=== PATIENT | male | born 1955 | race Caucasian/White ===

== ENCOUNTER 2018-04-04 06:58 | Day surgery (SDC) | payer OTHER ==
[2018-04-03 15:13] VITALS: BMI 30.7
[2018-04-04] MEDS ORDERED: LIDOCAINE VISCOUS 2% ORAL/TOP 20 ML UNIT-DOSE CUP ONE (07:47)
[2018-04-04 09:13] VITALS: TEMP 97.5
[2018-04-04 09:28] VITALS: PULSE 71
[2018-04-04 10:49] VITALS: BP 108/81
--- NOTE | 2018-04-04 11:45 | EKG ---
Test Reason : Blood Pressure : / mmHG Vent. Rate : 071 BPM Atrial Rate : 071 BPM P-R Int : 206 ms QRS Dur : 092 ms QT Int : 420 ms P-R-T Axes : 055 035 027 degrees QTc Int : 456 ms NORMAL SINUS RHYTHM POSSIBLE INFERIOR INFARCT , AGE UNDETERMINED ABNORMAL ECG NO PREVIOUS ECGS AVAILABLE Confirmed by Frank Dangelo MD ([id number]) on 04/04/2018 11:45:42 AM Referred By: Addie RAMIRES Confirmed By:Frank Dangelo MD
== END 2018-04-04 10:10 | disposition home or self-care (01) ==
LOC: JASU-ENDO 06:58
PROVIDERS: ATTEND Internal Medicine Cardiovascular Disease
PROC: 5A2204Z Restoration of Cardiac Rhythm, Single (ICD-10-PCS; 2018-04-04)
PROC: B246ZZ4 Ultrasonography of Right and Left Heart, Transesophageal (ICD-10-PCS; principal; 2018-04-04 08:15)
DX: I48.91 Unspecified atrial fibrillation (principal)
CPT/HCPCS: 93005; 93010; 93312; 93325

== ENCOUNTER 2018-04-24 10:17 | Day surgery (SDC) | payer OTHER ==
[2018-04-21 14:22] VITALS: BMI 29.9
[2018-04-24 11:35] VITALS: TEMP 97.5
[2018-04-24 12:02] VITALS: PULSE 84
[2018-04-24 12:08] VITALS: BP 109/75
--- NOTE | 2018-04-24 15:04 | EKG ---
Test Reason : Blood Pressure : / mmHG Vent. Rate : 084 BPM Atrial Rate : 084 BPM P-R Int : 178 ms QRS Dur : 078 ms QT Int : 366 ms P-R-T Axes : 036 045 022 degrees QTc Int : 432 ms NORMAL SINUS RHYTHM LOW VOLTAGE QRS BORDERLINE ECG WHEN COMPARED WITH ECG OF 04-APR-2018 09:08, NO SIGNIFICANT CHANGE WAS FOUND Confirmed by JACQUES GALLAGHER MD ([id number]) on 04/24/2018 3:04:53 PM Referred By: Jacques Gallagher Confirmed By:JACQUES GALLAGHER MD
== END 2018-04-24 12:09 | disposition home or self-care (01) ==
LOC: JASU-ENDO 10:17
PROVIDERS: ATTEND Internal Medicine Cardiovascular Disease
PROC: 5A2204Z Restoration of Cardiac Rhythm, Single (ICD-10-PCS; principal; 2018-04-24 11:00)
DX: I48.91 Unspecified atrial fibrillation (principal)
CPT/HCPCS: 92960; 93005; 93010

== ENCOUNTER 2019-12-21 19:21 | Inpatient (IN) | payer OTHER ==
--- NOTE | 2019-12-21 19:29 | PDOC ---
Rapid Medical Evaluation Chief Complaint: Laceration Time Seen by Provider: 12/21/19 19:26 Medical Evaluation: Allergies Allergy/AdvReac Type Severity Reaction Status Date / Time No Known Allergies Allergy Unverified 01/18/13 14:47 12/21/19 19:26 CC: had cyst to rt 2nd digit x 1 week, started augmentin now with fever, seen by madiha today and sent wound cx and tried to drain it with minimal results exam: febrile, noted erythema and edema to rt 2nd digit and early streaking Plan: septic w/u Discharge Disposition - Diagnosis Sepsis - Referrals - Patient Instructions - Post Discharge Activity
[2019-12-21] MEDS ORDERED: ACETAMINOPHEN 1000 MG/100 ML VIAL (NON FORMULARY) IVPB ONE (19:30)
--- NOTE | 2019-12-21 19:45 | PDOC ---
History of Present Illness - General Chief Complaint: Wound Stated Complaint: LACERATION Time Seen by Provider: 12/21/19 19:26 - History of Present Illness Initial Comments: 12/21/19 20:08 64 year old man with a history of afib /p ablation and loop recorder in 2019 who presents with R 1st digit swelling and erythema worsening for the past 1 week. The patient had a mucoid cyst for years and picked at it, he noted swelling and redness, his primary doctor Dr. giron prescribed augmentin which he took since yesterday and day him in the office where she performed an I&D without expression of significant volume. The patient was feeling flushed at home and that he might have a fever so he came to the ER for further care. He has no other complaints. No numbness, tingling, no pain with extension. Meds: lisnopril, crestor ROS GENERAL/CONSTITUTIONAL: + fever or chills. No weakness. HEAD, EYES, EARS, NOSE AND THROAT: No change in vision. No ear pain or discharge. No sore throat. CARDIOVASCULAR: No chest pain or shortness of breath RESPIRATORY: No cough, wheezing, or hemoptysis. GASTROINTESTINAL: No nausea, vomiting, diarrhea or constipation. GENITOURINARY: No dysuria, frequency, or change in urination. MUSCULOSKELETAL: No joint or muscle swelling or pain. No neck or back pain. SKIN: No rash NEUROLOGIC: No headache, vertigo, loss of consciousness, or change in strength/sensation. ENDOCRINE: No increased thirst. No abnormal weight change HEMATOLOGIC/LYMPHATIC: No anemia, easy bleeding, or history of blood clots. ALLERGIC/IMMUNOLOGIC: No hives or skin allergy. PE GENERAL: Awake, alert, and fully oriented, in no acute distress HEAD: No signs of trauma, normocephalic, atraumatic EYES: EOMI, sclera anicteric, conjunctiva clear ENT: oropharynx clear without exudates. Moist mucosa NECK: Normal ROM, supple LUNGS: No distress, speaks full sentences, clear to auscultation bilaterally HEART: Regular rate and rhythm, normal S1 and S2, no murmurs, rubs or gallops, peripheral pulses normal and equal bilaterally. ABDOMEN: Soft, nontender, normoactive bowel sounds. No guarding, no rebound. No masses EXTREMITIES : R finger with erythema swelling, not circumferential, ttp at the bulb, no tenderness on extension or flexion, normal sensation NEUROLOGICAL: Cranial nerves II through XII grossly intact. Normal speech, normal gait, no focal sensorimotor deficits SKIN: Warm, Dry, normal turgor, see extremity exam Assessment and Plan 64 year old man with a history of afib /p ablation and loop recorder in 2019 who presents with R 1st digit swelling and erythema worsening for the past 1 week. Consider cellulitis, Less consistent with flexor tensynovitis - labwork, cultures - broad spectrum abx - Plan for admission An Brown, PGY2 Emergency Medicine Past History - Medical History Allergies/Adverse Reactions: Allergies Allergy/AdvReac Type Severity Reaction Status Date / Time No Known Allergies Allergy Unverified 12/21/19 19:27 Home Medications: Ambulatory Orders Rosuvastatin Calcium [Crestor] 20 mg PO HS 03/30/18 Lisinopril 5 mg PO DAILY 12/22/19 Acetaminophen [Tylenol .Extra-Strength -] 500 mg PO Q6H PRN tablet 12/27/19 Cephalexin Monohydrate [Keflex -] 500 mg PO Q6HPO #120 capsule 12/27/19 Lisinopril [Prinivil] 5 mg PO DAILY tablet 12/27/19 Rosuvastatin [Crestor -] 20 mg PO HS tablet 12/27/19 Anemia: No Asthma: No Cancer: No Cardiac Disorders: Yes (PAROXYSMAL ATRIAL FIBRILLATION) CVA: No COPD: No CHF: No Dementia: No Diabetes: No GI Disorders: No Disorders: No HTN: Yes Hypercholesterolemia: Yes Liver Disease: No Seizures: No Thyroid Disease: No - Surgical History Abdominal Surgery: No Appendectomy: No Cardiac Surgery: (BETTY/CARDIOVERSION) Cholecystectomy: No Lung Surgery: No Neurologic Surgery: No Orthopedic Surgery: Yes (L KNEE REPLACEMENT,SHOULDER ARTHROPLASTY,TOTAL SHOUDER REPLACEMENT) - Psycho-Social/Smoking History Smoking History: Never smoked Have you smoked in the past 12 months: No - Substance Abuse Hx (Audit-C & DAST Scrn) How often the patient has a drink containing alcohol: Monthly or less Score: In Men: 4 or > Positive; In Women: 3 or > Positive: 1 Screen Result (Pos requires Nsg. Audit-10AR): Negative *Physical Exam - Vital Signs Last Vital Signs Temp Pulse Resp BP Pulse Ox 100.2 F H 111 H 18 136/90 99 12/21/19 19:23 12/21/19 19:23 12/21/19 19:23 12/21/19 19:23 12/21/19 19:23 ED Treatment Course - LABORATORY CBC & Chemistry Diagram: 12/25/19 06:43 12/25/19 06:43 Discharge - Discharge Information Problems reviewed: Yes Clinical Impression/Diagnosis: Paronychia Sepsis Qualifiers: Sepsis type: methicillin susceptible Staphylococcus aureus Sepsis acute organ dysfunction status: without acute organ dysfunction Qualified Code(s): A41.01 - Sepsis due to Methicillin susceptible Staphylococcus aureus Condition: Improved Disposition: HOME - Follow up/Referral - Patient Discharge Instructions - Post Discharge Activity
[2019-12-21] MEDS ORDERED: SODIUM CHLORIDE 1,000 ML IV SCH (20:00)
[2019-12-21] MEDS ORDERED: VANCOMYCIN 1,000 MG in DEXTROSE 5%-WATER - 250 ML IVPB ONE (20:08)
[2019-12-21] MEDS ORDERED: PIPERACILLIN/TAZOB 3.375 GM 3.375 GM in DEXTROSE 5%-WATER - 50 ML IVPB ONE (20:08)
[2019-12-21] MEDS ORDERED: PIPERACILLIN/TAZOB 3.375 GM 3.375 GM/50 ML BAG IVPB ONE (20:39)
[2019-12-21] MEDS ORDERED: VANCOMYCIN 1 GRAM (PRE-DOCKED) 1,000 MG/250 ML BAG IVPB ONE (20:39)
[2019-12-21 21:06] LABS: BASO % 0.3 % (0-2.0); EOS % 0.1 % (0-4.5); HEMATOCRIT 45.1 % (35.4-49); HEMOGLOBIN 14.9 GM/dL (11.7-16.9); LYMPH % 5.2 % (8-40); MCH 27.9 pg (25.7-33.7); MCHC 33.1 g/dl (32.0-35.9); MEAN CELL VOLUME 84.4 fl (80-96); MEAN PLT VOLUME 9.6 fl (7.5-11.1); MONO % 5.7 % (3.8-10.2); NEUT % 88.7 % (42.8-82.8); PLATELET COUNT 174 K/MM3 (134-434); RBC 5.35 M/mm3 (4.00-5.60); RDW 16.4 % (11.9-15.9); WHITE BLOOD COUNT 8.9 K/mm3 (4.0-10.0)
[2019-12-21 21:15] LABS: INR 1.08 (0.83-1.09); PROTHROMBIN TIME (PATIENT) 12.7 SEC (9.7-13.0)
[2019-12-21 21:18] LABS: ACTIVATED PTT 28.6 SECONDS (25.2-36.5)
[2019-12-21 21:41] LABS: BILIRUBIN,TOTAL 0.6 mg/dL (0.2-1); BLOOD UREA NITROGEN 15.8 mg/dL (7-18); CALCIUM 9.2 mg/dL (8.5-10.1); CREATININE 0.8 mg/dL (0.55-1.3); POTASSIUM 4.1 mmol/L (3.5-5.1)
--- NOTE | 2019-12-21 21:50 | PDOC ---
Documentation entered by Verena Hathaway SCRIBE, acting as scribe for Stevan Lisa MD. Stevan Lisa MD: This documentation has been prepared by the Rivas castro Brenda, SCRIBE, under my direction and personally reviewed by me in its entirety. I confirm that the documentation accurately reflects all work, treatment, procedures, and medical decision making performed by me. Attending Attestation - Resident Resident Name: An Brown - ED Attending Attestation I have performed the following: I have examined & evaluated the patient, The case was reviewed & discussed with the resident, I agree w/resident's findings & plan, Exceptions are as noted - HPI HPI: 12/21/19 21:34 The patient is a 64 year old male with a significant PMH of afib s/p ablation and loop recorder (2019) who presents to the ED for evaluation of 1 week of finger swelling. The patient notes that his right first digit has been progressively swelling and becoming red. He notes that he had a mucoid cyst for years and picked at it, which he believes caused it to become infected. Patient reports that he was prescribed augmentin by his PCP. However, he began to feel flushed at home today and was worried he spiked a fever. Patient denies any other symptoms. PCP: [facility] - Physicial Exam PE: 12/21/19 21:51 See resident exam - Medical Decision Making 12/21/19 21:51 64 M with finger infection. Now febrile in ED. - Labs, cultures - CXR, UA - Abx Discharge - Discharge Information Problems reviewed: Yes Clinical Impression/Diagnosis: Sepsis, Paronychia - Follow up/Referral - Patient Discharge Instructions - Post Discharge Activity
[2019-12-21] MEDS ORDERED: ACETAMINOPHEN INJECTION 100 ML IVPB ONE (22:03)
[2019-12-21 22:14] LABS: URINE APPEARANCE CLEAR; URINE BILIRUBIN NEGATIVE (NEGATIVE); URINE COLOR YELLOW; URINE GLUCOSE (UA) NEGATIVE (NEGATIVE); URINE KETONE NEGATIVE (NEGATIVE); URINE LEUK ESTERASE NEGATIVE (NEGATIVE); URINE NITRITE NEGATIVE (NEGATIVE); URINE PROTEIN NEGATIVE (NEGATIVE); URINE UROBILINOGEN 0.2 mg/dL (0.2-1.0)
[2019-12-21] MEDS ORDERED: ACETAMINOPHEN 325 MG TABLET (FP) PO PRN (23:25)
[2019-12-22] MEDS: oxyCODONE HCL 5 MG TABLET PO PRN ×4 (01:58→21:10)
[2019-12-22 03:31] VITALS: BMI 30.2
[2019-12-22] MEDS: ACETAMINOPHEN 500 MG TABLET (FP) PO PRN ×2 (06:39→17:34)
[2019-12-22] MEDS ORDERED: PIPERACILLIN/TAZOB 3.375 GM 3.375 GM in DEXTROSE 5%-WATER - 50 ML IVPB SCH (07:45)
--- NOTE | 2019-12-22 07:49 | HP ---
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 He started Augmentin 24 hours prior to his ER presentation. Bacterial and fungal cultures of the infection were collected by me in the office and are pending at this time. Doctor Chato has PMH of Atrial Fibrillation S/p ablation in 2019 with good HR control since then and HTN. History Source: Patient Limitations to Obtaining History: No Limitations - Smoking History Smoking history: Never smoked Have you smoked in the past 12 months: No - Alcohol/Substance Use Hx Alcohol Use: No Home Medications - Allergies Allergies/Adverse Reactions: Allergies Allergy/AdvReac Type Severity Reaction Status Date / Time No Known Allergies Allergy Unverified 12/21/19 19:27 - Home Medications Home Medications: Ambulatory Orders Metoprolol Tartrate 25 mg PO BID 03/30/18 Ramipril 5 mg PO DAILY 03/30/18 Rosuvastatin Calcium [Crestor] 20 mg PO DAILY 03/30/18 Apixaban [Eliquis] 5 mg PO BID 04/03/18 Dronedarone HCl [Multaq] 400 mg PO BID 04/24/18 Review of Systems - Review of Systems Constitutional: reports: Fever Eyes: reports: No Symptoms HENT: reports: No Symptoms Neck: reports: No Symptoms Cardiovascular: reports: No Symptoms Respiratory: reports: No Symptoms Gastrointestinal: reports: No Symptoms Genitourinary: reports: No Symptoms Breasts: reports: No Symptoms Reported Musculoskeletal: reports: Joint Swelling (right index distal IP joint edema) Neurological: reports: No Symptoms Physical Examination Vital Signs: Vital Signs Temperature 101.7 F H 12/22/19 06:20 Pulse Rate 94 H 12/22/19 06:20 Respiratory Rate 18 12/22/19 06:20 Blood Pressure 129/72 12/22/19 06:20 O2 Sat by Pulse Oximetry (%) 96 12/22/19 00:32 Constitutional: Yes: Well Nourished Eyes: Yes: WNL HENT: Yes: WNL Neck: Yes: WNL Cardiovascular: Yes: WNL Respiratory: Yes: WNL Gastrointestinal: Yes: WNL ...Rectal Exam: Yes: WNL Renal/: Yes: WNL Breast(s): Yes: WNL Musculoskeletal: Yes: Joint Swelling (right index distal IP joint) Labs: CBC, BMP 12/21/19 20:35 12/21/19 20:35 Imaging - Results Chest X-ray: Other (no pleural effusn , no infiltrate, no cardiomegaly) X-ray: Other (right index O?A and no fracture or foreign object) Problem List - Problems (1) Sepsis Assessment/Plan: Zosyn iv ID consult wound bacterial and fungal cultures pending hand surgeon eval Code(s): A41.9 - SEPSIS, UNSPECIFIED ORGANISM (2) Paronychia Assessment/Plan: with synovial cyst infection keep area protected and dry hand surgeon eval Code(s): [id number] - (3) Paroxysmal atrial fibrillation Assessment/Plan: HR controlled and sinus rhythm preserved since RF ABLATION 2018 Crestor 20 mg qhs lisinopril 5 mg daily Code(s): I48.0 - PAROXYSMAL ATRIAL FIBRILLATION
[2019-12-22] MEDS ORDERED: PIPERACILLIN/TAZOBACTAM 3.375 GM VIAL IVPB ONE ×3 (08:57→21:06)
[2019-12-22] MEDS ORDERED: DEXTROSE 5%-WATER - 50 ML IVPB ONE ×3 (08:57→21:07)
[2019-12-22] MEDS: LISINOPRIL 5 MG TABLET (FP) PO SCH (09:14)
[2019-12-22] MEDS ORDERED: LISINOPRIL 5 MG TABLET (FP) PO SCH (10:00)
[2019-12-22] MEDS: VANCOMYCIN 1,250 MG in DEXTROSE 5%-WATER - 250 ML IVPB SCH ×2 (10:15→22:06)
--- NOTE | 2019-12-22 13:39 | PN ---
Progress Note (short form) - Note Progress Note: ID consult dictated imp/reccd right second digit soft tissue infection/cellulitis- vanco/zosyn hand surgery evaluation cultures sent by PMD from her office will f/u Problem List - Problems (1) Abscess Code(s): L02.91 - CUTANEOUS ABSCESS, UNSPECIFIED (2) Soft tissue infection Code(s): L08.9 - LOCAL INFECTION OF THE SKIN AND SUBCUTANEOUS TISSUE, UNSP
[2019-12-22] MEDS: PIPERACILLIN/TAZOB 3.375 GM 3.375 GM in DEXTROSE 5%-WATER - 50 ML IVPB SCH ×2 (14:21→21:10)
[2019-12-22] MEDS ORDERED: SODIUM CHLORIDE 0.45% 1,000 ML IV SCH (18:15)
[2019-12-22] MEDS: DOCUSATE SODIUM 100 MG CAPSULE (FP) PO SCH (21:10)
[2019-12-22] MEDS: ROSUVASTATIN CA 20 MG TABLET (FP) PO SCH (21:10)
[2019-12-22] MEDS ORDERED: LIDOCAINE HCL 1%, 10 MG/ML (50 mL VIAL) SQ ONE (22:37)
--- NOTE | 2019-12-22 22:48 | CONSULT ---
Consult - text type - Consultation Consultation Note: Full consult dictated IMP:infected right 2nd finger plan: I & D at bedside, IV ABX
[2019-12-23] MEDS ORDERED: oxyCODONE HCL 5 MG TABLET PO ONE (00:05)
--- NOTE | 2019-12-23 01:30 | CONS ---
DATE OF CONSULTATION: 12/22/2019 HISTORY OF PRESENT ILLNESS: Patient is a 64-year-old male complaining of pain and swelling of his right finger. He started having some swelling earlier in the week. He went to his medical doctor who prescribed him some Augmentin. The finger only got more and more painful and swollen and was admitted to the hospitalist for IV antibiotics this morning. PHYSICAL EXAMINATION: Patient has an obvious abscess to the distal phalanx, proximal to the nail. He has extending erythema back to the PIP joint dorsally and volarly. Significant tenderness on the dorsum of the finger, but no tenderness on the palmar surface of his finger along the flexor sheath. Patient has adequate range of motion of the DIP joint and the PIP joint of the right index finger. No lymphangitis or deep space infection of the forearm. IMPRESSION: Cellulitis and abscess of right index finger with the abscess on the dorsum of the finger distal to the DIP joint just proximal to the nail. Risks, benefits, and alternatives were discussed with the patient in great detail. Obtained informed consent from the patient and witnessed from the nurse. A metacarpal block with 1% lidocaine plain was performed. The abscess area was cleaned with betadine. A small horizontal incision was made just proximal to the nail, unroofing the abscess. Presently, 2-3 mL of pus was drained. I irrigated this area with normal saline lavage. I stuck a slight wick in the area and then placed a dry dressing. Patient will continue with IV antibiotics as prescribed by the PMD and will follow the patient in the next few days to make sure that the infection is resolving. KACI EPSTEIN M.D. [id number]
[2019-12-23] MEDS ORDERED: DEXTROSE 5%-WATER - 50 ML IVPB ONE ×4 (02:08→21:56)
[2019-12-23] MEDS ORDERED: PIPERACILLIN/TAZOBACTAM 3.375 GM VIAL IVPB ONE ×4 (02:08→21:56)
[2019-12-23] MEDS: PIPERACILLIN/TAZOB 3.375 GM 3.375 GM in DEXTROSE 5%-WATER - 50 ML IVPB SCH ×4 (03:11→22:00)
[2019-12-23] MEDS: oxyCODONE HCL 5 MG TABLET PO PRN (03:11)
[2019-12-23] MEDS: ACETAMINOPHEN 500 MG TABLET (FP) PO PRN ×2 (06:48→22:01)
[2019-12-23 07:22] LABS: BASO % 0.4 % (0-2.0); EOS % 0.6 % (0-4.5); HEMATOCRIT 42.3 % (35.4-49); HEMOGLOBIN 13.9 GM/dL (11.7-16.9); LYMPH % 12.5 % (8-40); MCH 27.7 pg (25.7-33.7); MCHC 32.8 g/dl (32.0-35.9); MEAN CELL VOLUME 84.7 fl (80-96); MEAN PLT VOLUME 9.6 fl (7.5-11.1); MONO % 8.7 % (3.8-10.2); NEUT % 77.8 % (42.8-82.8); PLATELET COUNT 136 K/MM3 (134-434); RBC 4.99 M/mm3 (4.00-5.60); RDW 16.2 % (11.9-15.9); WHITE BLOOD COUNT 7.8 K/mm3 (4.0-10.0)
[2019-12-23 07:26] LABS: ALBUMIN 3.2 g/dl (3.4-5.0); BILIRUBIN,TOTAL 0.7 mg/dL (0.2-1); BLOOD UREA NITROGEN 9.7 mg/dL (7-18); CALCIUM 8.3 mg/dL (8.5-10.1); TOT PROT 6.1 g/dl (6.4-8.2)
[2019-12-23] MEDS ORDERED: PT OWN MED DRAWER 7, Y5N ONE ×2 (08:45→21:58)
[2019-12-23] MEDS: VANCOMYCIN 1,250 MG in DEXTROSE 5%-WATER - 250 ML IVPB SCH ×2 (09:29→22:30)
[2019-12-23] MEDS: LISINOPRIL 5 MG TABLET (FP) PO SCH (09:29)
--- NOTE | 2019-12-23 11:45 | PN ---
Progress Note, Physician Chief Complaint: right index infection with sepsis History of Present Illness: 64 yo male who was admitted for infected right index, had I4D last night with decrease in fever . Wound cultures performed in the office are positive for Staph. No sensitivity is available. Wound SHANIQUE was also significantly positive. In hospital blood cultures are positive for Gram positive in clusters cocci - Current Medication List Current Medications: Active Medications Acetaminophen (Tylenol -) 500 mg PO Q6H PRN PRN Reason: FEVER Last Admin: 12/23/19 06:48 Dose: 500 mg Documented by: Docusate Sodium (Colace -) 100 mg PO HS SILVIA Last Admin: 12/22/19 21:10 Dose: 100 mg Documented by: Vancomycin HCl 1,250 mg/ (Dextrose) 250 mls @ 166.667 mls/hr IVPB 0900,2100 [facility]; Protocol Last Admin: 12/23/19 09:29 Dose: 166.667 mls/hr Documented by: Piperacillin Sod/Tazobactam (Sod 3.375 gm/ Dextrose) 50 mls @ 100 mls/hr IVPB Q6H-IV [facility]; Protocol Last Admin: 12/23/19 08:12 Dose: 100 mls/hr Documented by: Sodium Chloride (1/2 Normal Saline) 1,000 mls @ 75 mls/hr IV ASDIR SILVIA Stop: 12/23/19 18:00 Last Admin: 12/22/19 18:12 Dose: 75 mls/hr Documented by: Lisinopril (Prinivil) 5 mg PO DAILY [facility] Last Admin: 12/23/19 09:29 Dose: 5 mg Documented by: Oxycodone HCl (Roxicodone -) 10 mg PO Q6H PRN PRN Reason: PAIN LEVEL 6-10 Last Admin: 12/23/19 03:11 Dose: 10 mg Documented by: Rosuvastatin Calcium (Crestor -) 20 mg PO HS SILVIA Last Admin: 12/22/19 21:10 Dose: 20 mg Documented by: Zolpidem Tartrate (Ambien -) 5 mg PO HS PRN PRN Reason: INSOMNIA - Objective Vital Signs: Vital Signs Temperature 100.6 F H 12/23/19 07:00 Pulse Rate 86 12/23/19 07:00 Respiratory Rate 20 12/23/19 09:00 Blood Pressure 126/60 12/23/19 07:00 O2 Sat by Pulse Oximetry (%) 99 12/22/19 21:00 Constitutional: Yes: No Distress, Calm Eyes: Yes: Conjunctiva Clear HENT: Yes: Atraumatic, Normocephalic Neck: Yes: Supple, Trachea Midline Cardiovascular: Yes: Regular Rate and Rhythm, S1, S2 Respiratory: Yes: Regular, CTA Bilaterally Gastrointestinal: Yes: Normal Bowel Sounds, Soft. No: Hepatomegaly, Splenomegaly ...Rectal Exam: Yes: Deferred Genitourinary: Yes: WNL Extremities: Yes: Other (right index not examined but there is significant decrease in pain). No: Calf Tenderness Edema: No Labs: CBC, BMP 12/23/19 06:35 12/23/19 06:35 INR, PTT INR 1.08 (0.83-1.09) 12/21/19 20:35 Problem List - Problems (1) Sepsis Assessment/Plan: Zosyn iv Vancomycin ID consult wound bacterial and fungal cultures with bacterial cultures positive for Staph, and wound SHANIQUE positive in hospital blood cultures are also positive for clusters of cocci incision and drainage of katrina wound were performed yesterday Code(s): A41.9 - SEPSIS, UNSPECIFIED ORGANISM (2) Paronychia Assessment/Plan: with synovial cyst infection keep area protected and dry hand surgeon incision and drainage performed yesterday Code(s): [id number] - (3) Paroxysmal atrial fibrillation Assessment/Plan: currently in sinus rhythm Code(s): I48.0 - PAROXYSMAL ATRIAL FIBRILLATION
--- NOTE | 2019-12-23 12:24 | PN ---
Progress Note (short form) - Note Progress Note: fevers overnight s/p bedside incision and drainage of finger with pus expressed last night-no culture sent reports less pain wound culture from office with staph- further ID pending blood culture gpc clusters Vital Signs Period Temp Pulse Resp BP Sys/Trejo Pulse Ox Last 24 Hr 98.0 F-102.2 F 78-87 20-20 110-139/60-80 99 no conjunctival hemorrhages cor-rrr lungs clear abd soft,nt ext less erythema and swelling of the finger, ?fluctuance at the tip CBC, BMP 12/23/19 06:35 12/23/19 06:35 Microbiology 12/21/19 20:35 Blood - Peripheral Venous Blood Culture - Preliminary Pending Organism 12/21/19 21:55 Urine - Urine Clean Catch Urine Culture - Final NO GROWTH OBTAINED 12/21/19 20:35 Finger - Right Index Finger Gram Stain - Final 12/21/19 20:35 Finger - Right Index Finger Wound Culture - Preliminary NO GROWTH OBTAINED AFTER 24 HOURS INCUBATION, REINCUBATED. 12/21/19 20:35 Blood - Peripheral Venous Blood Culture - Preliminary NO GROWTH OBTAINED AFTER 24 HOURS, INCUBATION TO CONTINUE FOR 4 DAYS. imp/reccd bacteremia secondary to finger infection right second digit soft tissue infection/cellulitis- vanco/zosyn hand surgery followup- ?further drainage esr/crp vanco trough today repeat blood cultures echo await final culture results before adjusting antibiotics d/w patient at length cultures sent by PMD from her office will f/u
--- NOTE | 2019-12-23 14:26 | EKG ---
Test Reason : Blood Pressure : / mmHG Vent. Rate : 077 BPM Atrial Rate : 077 BPM P-R Int : 192 ms QRS Dur : 090 ms QT Int : 380 ms P-R-T Axes : 029 -04 020 degrees QTc Int : 430 ms NORMAL SINUS RHYTHM NORMAL ECG WHEN COMPARED WITH ECG OF 24-APR-2018 11:31, NO SIGNIFICANT CHANGE WAS FOUND Confirmed by MD SEGAL MOYSES ([id number]) on 12/23/2019 2:26:13 PM Referred By: Tania TINAJERO Confirmed By:NAYANA SEGAL MD
[2019-12-23] MEDS: ROSUVASTATIN CA 20 MG TABLET (FP) PO SCH (22:00)
[2019-12-23] MEDS: ZOLPIDEM TARTRATE 5 MG TABLET PO PRN (22:00)
[2019-12-23] MEDS: DOCUSATE SODIUM 100 MG CAPSULE (FP) PO SCH (22:00)
[2019-12-24] MEDS ORDERED: PIPERACILLIN/TAZOBACTAM 3.375 GM VIAL IVPB ONE ×2 (02:48→09:32)
[2019-12-24] MEDS ORDERED: DEXTROSE 5%-WATER - 50 ML IVPB ONE ×2 (02:48→09:32)
[2019-12-24] MEDS: PIPERACILLIN/TAZOB 3.375 GM 3.375 GM in DEXTROSE 5%-WATER - 50 ML IVPB SCH ×2 (02:50→09:38)
[2019-12-24 08:25] LABS: BASO % 0.5 % (0-2.0); EOS % 1.6 % (0-4.5); HEMATOCRIT 43.4 % (35.4-49); HEMOGLOBIN 14.2 GM/dL (11.7-16.9); LYMPH % 14.1 % (8-40); MCH 27.6 pg (25.7-33.7); MCHC 32.8 g/dl (32.0-35.9); MEAN PLT VOLUME 8.8 fl (7.5-11.1); MONO % 9.1 % (3.8-10.2); NEUT % 74.7 % (42.8-82.8); PLATELET COUNT 153 K/MM3 (134-434); RBC 5.16 M/mm3 (4.00-5.60); RDW 16.4 % (11.9-15.9); WHITE BLOOD COUNT 5.7 K/mm3 (4.0-10.0)
[2019-12-24 08:48] LABS: BLOOD UREA NITROGEN 10.8 mg/dL (7-18); CALCIUM 8.7 mg/dL (8.5-10.1); CREATININE 0.8 mg/dL (0.55-1.3)
[2019-12-24] MEDS ORDERED: PT OWN MED DRAWER 7, Y5N ONE (09:33)
[2019-12-24] MEDS: LISINOPRIL 5 MG TABLET (FP) PO SCH (09:38)
--- NOTE | 2019-12-24 10:16 | PN ---
Progress Note (short form) - Note Progress Note: afebrile less finger pain Vital Signs Period Temp Pulse Resp BP Sys/Trejo Pulse Ox Last 24 Hr 97.7 F-99.7 F 76-80 20-20 110-129/68-80 98 cor-rrr lungs clear abd soft,nt ext less edema of the finger, erythema of the tip, ?fluctuance CBC, BMP 12/24/19 07:28 12/24/19 07:28 Microbiology 12/21/19 20:35 Finger - Right Index Finger Gram Stain - Final 12/21/19 20:35 Finger - Right Index Finger Wound Culture - Preliminary 12/21/19 20:35 Blood - Peripheral Venous Blood Culture - Preliminary NO GROWTH OBTAINED AFTER 48 HOURS, INCUBATION TO CONTINUE FOR 3 DAYS. 12/21/19 20:35 Blood - Peripheral Venous Blood Culture - Preliminary Pending Organism 12/21/19 21:55 Urine - Urine Clean Catch Urine Culture - Final NO GROWTH OBTAINED Laboratory Tests 12/23/19 12/24/19 12/24/19 20:30 07:28 07:28 ESR 14 C-Reactive Protein 6.9 H Vancomycin Pre-Dose 7.7 imp/reccd bacteremia secondary to finger infection right second digit soft tissue infection/cellulitis- vanco/zosyn hand surgery followup- ?further drainage f/u cultures echo await final culture results before adjusting antibiotics continue vanco/zosyn-increase vanco to 1500 q12h d/w patient at length please change iv - d/w nurse cultures sent by PMD from her office will f/u
[2019-12-24] MEDS ORDERED: VANCOMYCIN HCL 1,500 MG in DEXTROSE 5%-WATER - 500 ML IVPB SCH (11:15)
[2019-12-24] MEDS: VANCOMYCIN 1,250 MG in DEXTROSE 5%-WATER - 250 ML IVPB SCH (11:30)
--- NOTE | 2019-12-24 11:47 | PN ---
Progress Note (short form) - Note Progress Note: Pt seen and examined. He is 1 day s/p open I&D to the eponychial area of the right index finger. He states is is much better, less pain, less swelling, less erythema, no drainage. AVSS Bld Cx Pending Wound Cx Pending WBC decreased to 5.7 ESR 14 PE Right index finger swollen and erythematous distal to the PIP joint, it was very swollen, red and painful proximal to the MP joint 24 hours ago. Intact but limited ROM at the MP, PIP, DIP joints because of pain and sw elling. NVI No tenderness volarly, no signs of flexor tendon sheath infection. + cellulitis circumferentially, worse dorsally, right index finger distal to PIP joint Imp Resolving infection/cellulitis right index finger. Rec Improving. No surgery today. Con't IV antibiotics Elevation Warm soaks Will reevaluate tomorrow for possible surgery
--- NOTE | 2019-12-24 14:28 | ECHO ---
Name: DOROTA LYON Exam:Adult Echocardiogram Study Date: 12/24/2019 01:51 PM Age: 64 yrs Reason For Study: R/O Endocarditis Height: 71 in Weight: 216 lb BSA: 2.2 m2 MMode/2D Measurements & Calculations IVSd: 1.2 cm Ao root diam: 3.3 cm LVIDd: 3.9 cm LA dimension: 3.1 cm LVIDs: 2.8 cm LVPWd: 0.99 cm EDV(Teich): 64.8 ml LVOT diam: 2.0 cm ESV(Teich): 29.2 ml LAV (MOD-bp): 45.6 ml Doppler Measurements & Calculations MV E max sunday: 66.7 cm/sec Ao V2 max: 149.3 cm/sec MV A max sunday: 60.6 cm/sec Ao max P.9 mmHg MV E/A: 1.1 MV dec time: 0.17 sec ROSALINE(V,D): 2.7 cm2 LV V1 max P.8 mmHg PA V2 max: 108.6 cm/sec LV V1 max: 130.4 cm/sec PA max P.7 mmHg Med Peak E' Sunday: 7.4 cm/sec PI Vmax: 100.4 cm/sec Med E/e': 9.0 Lat Peak E' Sunday: 12.7 cm/sec Lat E/e': 5.2 Procedure Study Quality: Fair. Left Ventricle The left ventricular size, thickness and function are normal. The left ventricular ejection fraction is normal. Ejection Fraction = 55-60%. Left Ventricular Filling pattern is normal for age. Right Ventricle The right ventricle is normal in size and function. Atria Normal left and right atrial size and function. Mitral Valve The mitral valve leaflets appear normal. There is no evidence of stenosis, fluttering, or prolapse. T here is no mitral regurgitation noted. Tricuspid Valve The tricuspid valve is not well visualized. No tricuspid regurgitation. Aortic Valve The aortic valve is normal in structure and function. Pulmonic Valve The pulmonic valve is not well seen, but is grossly normal. There is no pulmonic valvular regurgitati on. Great Vessels The aortic root is normal size. Pericardium/Pleura There is no pericardial effusion. Interpretation Summary This was essentially a normal study. Fredrick Vickers 12/24/2019 02:28 PM
[2019-12-24] MEDS: ACETAMINOPHEN 500 MG TABLET (FP) PO PRN ×2 (15:19→22:33)
[2019-12-24] MEDS: CEFAZOLIN 2 GM/D5W 2 GM/50 ML ML IVPB SCH (17:06)
--- NOTE | 2019-12-24 22:27 | PN ---
Progress Note, Physician Chief Complaint: right index infection with sepsis History of Present Illness: 64 yo male who was admitted for infected right index, had I&D last night with decrease in fever . Wound cultures performed in the office are positive for Staph. Sensitivity is was made available to ID and treatament adjusted accordingly In hospital blood cultures are positive for Gram positive in clusters cocci. Pain in the right index improved since drainage and now we are monitoring the resolution of the accompanying cellulitis process - Current Medication List Current Medications: Active Medications Acetaminophen (Tylenol -) 500 mg PO Q6H PRN PRN Reason: FEVER Last Admin: 12/24/19 15:19 Dose: 500 mg Documented by: Docusate Sodium (Colace -) 100 mg PO HS [facility] Last Admin: 12/23/19 22:00 Dose: 100 mg Documented by: Cefazolin Sodium/Dextrose (Ancef 2 Gm Premixed Ivpb -) 2 gm in 50 mls @ 100 mls/hr IVPB Q8H-IV [facility] Last Admin: 12/24/19 17:06 Dose: 100 mls/hr Documented by: Lisinopril (Prinivil) 5 mg PO DAILY [facility] Last Admin: 12/24/19 09:38 Dose: 5 mg Documented by: Oxycodone HCl (Roxicodone -) 10 mg PO Q6H PRN PRN Reason: PAIN LEVEL 6-10 Last Admin: 12/23/19 03:11 Dose: 10 mg Documented by: Rosuvastatin Calcium (Crestor -) 20 mg PO HS [facility] Last Admin: 12/23/19 22:00 Dose: 20 mg Documented by: Zolpidem Tartrate (Ambien -) 5 mg PO HS PRN PRN Reason: INSOMNIA Last Admin: 12/23/19 22:00 Dose: 5 mg Documented by: - Objective Vital Signs: Vital Signs Temperature 98.2 F 12/24/19 17:19 Pulse Rate 70 12/24/19 17:19 Respiratory Rate 20 12/24/19 17:19 Blood Pressure 129/55 L 12/24/19 17:19 O2 Sat by Pulse Oximetry (%) 98 12/24/19 09:00 Constitutional: Yes: No Distress, Calm Eyes: Yes: Conjunctiva Clear, EOM Intact HENT: Yes: Atraumatic, Normocephalic Neck: Yes: Supple, Trachea Midline Cardiovascular: Yes: Regular Rate and Rhythm, S1, S2 Respiratory: Yes: Regular, CTA Bilaterally Gastrointestinal: Yes: Normal Bowel Sounds, Soft, Abdomen, Obese. No: Splenomegaly ...Rectal Exam: Yes: Deferred Genitourinary: No: CVA Tenderness - Left, CVA Tenderness - Right, Incontinence Musculoskeletal: No: Joint Stiffness Extremities: Yes: Other (right index is less swollen, erythem is subsiding , there is no pulsating pain) Edema: No Peripheral Pulses WNL: Yes Peripheral Pulses: Left Femoral: 2+, Right Femoral: 2+ Neurological: Yes: Alert, Oriented Psychiatric: Yes: Alert, Oriented Labs: CBC, BMP 12/24/19 07:28 12/24/19 07:28 INR, PTT INR 1.08 (0.83-1.09) 12/21/19 20:35 - ....Imaging Other: Other (ECHO normal) Problem List - Problems (1) Sepsis Assessment/Plan: VAncomycin and Zosyn iv were stopped Cefazolin 2 luúl q8 was started wound bacterial positive for MSSA Code(s): A41.9 - SEPSIS, UNSPECIFIED ORGANISM (2) Paronychia Assessment/Plan: with synovial cyst infection keep area protected and dry Code(s): ZMI1569 - (3) Paroxysmal atrial fibrillation Assessment/Plan: HR controlled and sinus rhythm preserved since RF ABLATION 2018 Crestor 20 mg qhs lisinopril 5 mg daily ECHO normal Code(s): I48.0 - PAROXYSMAL ATRIAL FIBRILLATION
[2019-12-24] MEDS: ROSUVASTATIN CA 20 MG TABLET (FP) PO SCH (22:32)
[2019-12-24] MEDS: ZOLPIDEM TARTRATE 5 MG TABLET PO PRN (22:32)
[2019-12-24] MEDS: DOCUSATE SODIUM 100 MG CAPSULE (FP) PO SCH (22:33)
[2019-12-25] MEDS: CEFAZOLIN 2 GM/D5W 2 GM/50 ML ML IVPB SCH ×3 (02:17→17:03)
[2019-12-25 07:58] LABS: BASO % 0.6 % (0-2.0); HEMATOCRIT 44.3 % (35.4-49); HEMOGLOBIN 14.6 GM/dL (11.7-16.9); MCH 27.8 pg (25.7-33.7); MCHC 32.9 g/dl (32.0-35.9); MEAN CELL VOLUME 84.3 fl (80-96); MEAN PLT VOLUME 9.3 fl (7.5-11.1); MONO % 9.8 % (3.8-10.2); NEUT % 69.6 % (42.8-82.8); PLATELET COUNT 178 K/MM3 (134-434); RBC 5.25 M/mm3 (4.00-5.60); RDW 16.6 % (11.9-15.9); WHITE BLOOD COUNT 6.6 K/mm3 (4.0-10.0)
[2019-12-25 08:23] LABS: ALBUMIN 3.4 g/dl (3.4-5.0); BILIRUBIN,TOTAL 0.5 mg/dL (0.2-1); BLOOD UREA NITROGEN 15.9 mg/dL (7-18); CALCIUM 8.9 mg/dL (8.5-10.1); CREATININE 0.8 mg/dL (0.55-1.3); POTASSIUM 4.1 mmol/L (3.5-5.1); TOT PROT 6.5 g/dl (6.4-8.2)
[2019-12-25] MEDS: LISINOPRIL 5 MG TABLET (FP) PO SCH (09:17)
--- NOTE | 2019-12-25 16:22 | PN ---
Progress Note (short form) - Note Progress Note: afebrile less finger pain Vital Signs Period Temp Pulse Resp BP Sys/Trejo Pulse Ox Last 24 Hr 98 F-98.6 F 70-88 20-20 117-137/55-82 97-97 cor-rrr llungs clear abd soft,nt ext no edema finger still with swelling and erythema of the tip, ?fluctuance CBC, BMP 12/25/19 06:43 12/25/19 06:43 Microbiology 12/23/19 14:15 Blood - Peripheral Venous Blood Culture - Preliminary NO GROWTH OBTAINED AFTER 48 HOURS, INCUBATION TO CONTINUE FOR 3 DAYS. 12/23/19 14:30 Blood - Peripheral Venous Blood Culture - Preliminary NO GROWTH OBTAINED AFTER 48 HOURS, INCUBATION TO CONTINUE FOR 3 DAYS. 12/21/19 20:35 Blood - Peripheral Venous Blood Culture - Preliminary Staphylococcus Epidermidis 12/21/19 20:35 Finger - Right Index Finger Gram Stain - Final 12/21/19 20:35 Finger - Right Index Finger Wound Culture - Preliminary Staphylococcus Latex Coag Pos 12/21/19 20:35 Blood - Peripheral Venous Blood Culture - Preliminary NO GROWTH OBTAINED AFTER 72 HOURS, INCUBATION TO CONTINUE FOR 2 DAYS. 12/21/19 21:55 Urine - Urine Clean Catch Urine Culture - Final NO GROWTH OBTAINED echo normal imp/reccd right second digit abscess/cellulitis- vanco/zosyn hand surgery followup- ?further drainage f/u cultures echo MSSA in office culture continue cefazolin f/u hand surgery
--- NOTE | 2019-12-25 16:32 | PN ---
Progress Note (short form) - Note Progress Note: Ortho Pt seen and examined s/p right index finger I&D 2 days ago. Pt is continuing to improve. Selected Entries 12/25/19 15:14 Temperature 98.1 F Pulse Rate 83 Respiratory 20 Rate Blood Pressure 117/72 Laboratory Tests 12/25/19 06:43 WBC 6.6 Hgb 14.6 Hct 44.3 Plt Count 178 right index finger- + swelling, resolving erythema, mild ttp, no fluctuance, decr pain , incr rom nvi Microbiology 12/21/19 20:35 Finger - Right Index Finger Gram Stain - Final 12/21/19 20:35 Finger - Right Index Finger Wound Culture - Preliminary Staphylococcus Latex Coag Pos a/p- Improving No surgical intervention at this time Abx as per ID elevation warm soaks will follow d/w Dr. Grant
[2019-12-25] MEDS: ACETAMINOPHEN 500 MG TABLET (FP) PO PRN (22:29)
[2019-12-25] MEDS: DOCUSATE SODIUM 100 MG CAPSULE (FP) PO SCH (22:30)
[2019-12-25] MEDS: ZOLPIDEM TARTRATE 5 MG TABLET PO PRN (22:30)
[2019-12-25] MEDS: ROSUVASTATIN CA 20 MG TABLET (FP) PO SCH (22:30)
[2019-12-26] MEDS: CEFAZOLIN 2 GM/D5W 2 GM/50 ML ML IVPB SCH ×3 (01:42→17:20)
--- NOTE | 2019-12-26 08:38 | PN ---
Progress Note (short form) - Note Progress Note: Pt seen and examined. He states his right index finger continues to improve, it is less swollen, less erythematous, less painful with movement, less tender. No drainage, no fluid/pus collection. AVSS Cx + Staph epi Imp Right index finger infection continuing to improve in all clinical parameters. No surgery necessary. Rec Continue antibiotics as per ID. Continue warm soaks and elevation. Can DC from an orthopedic point of view. F/u as an out patient PRN.
[2019-12-26] MEDS: LISINOPRIL 5 MG TABLET (FP) PO SCH (09:14)
--- NOTE | 2019-12-26 13:15 | PN ---
Progress Note, Physician Chief Complaint: right index infection with sepsis History of Present Illness: 64 yo male who was admitted for Sepsis , secondary to right index abscess, Wound cultures performed in the office are positive for MSSA, blood cultures are positive for Staph epidermidis In hospital blood cultures are positive for Gram positive in clusters cocci. Pain in the right index improved since drainage - Current Medication List Current Medications: Active Medications Acetaminophen (Tylenol -) 500 mg PO Q6H PRN PRN Reason: FEVER Last Admin: 12/25/19 22:29 Dose: 500 mg Documented by: Docusate Sodium (Colace -) 100 mg PO [facility] Last Admin: 12/25/19 22:30 Dose: 100 mg Documented by: Cefazolin Sodium/Dextrose (Ancef 2 Gm Premixed Ivpb -) 2 gm in 50 mls @ 100 mls/hr IVPB Q8H-IV [facility] Last Admin: 12/26/19 09:14 Dose: 100 mls/hr Documented by: Lisinopril (Prinivil) 5 mg PO DAILY [facility] Last Admin: 12/26/19 09:14 Dose: 5 mg Documented by: Oxycodone HCl (Roxicodone -) 10 mg PO Q6H PRN PRN Reason: PAIN LEVEL 6-10 Last Admin: 12/23/19 03:11 Dose: 10 mg Documented by: Rosuvastatin Calcium (Crestor -) 20 mg PO [facility] Last Admin: 12/25/19 22:30 Dose: 20 mg Documented by: - Objective Vital Signs: Vital Signs Temperature 98.6 F 12/26/19 10:00 Pulse Rate 20 L 12/26/19 10:00 Respiratory Rate 20 12/26/19 09:00 Blood Pressure 122/83 12/26/19 10:00 O2 Sat by Pulse Oximetry (%) 98 12/26/19 09:00 Constitutional: Yes: No Distress, Calm Eyes: Yes: Conjunctiva Clear, EOM Intact HENT: Yes: Atraumatic, Normocephalic Neck: Yes: Supple, Trachea Midline Cardiovascular: Yes: Regular Rate and Rhythm, S1, S2 Gastrointestinal: Yes: Normal Bowel Sounds, Soft. No: Hepatomegaly ...Rectal Exam: Yes: Deferred Edema: No Peripheral Pulses WNL: Yes Neurological: Yes: Alert, Oriented Psychiatric: Yes: Alert, Oriented Labs: CBC, BMP 12/25/19 06:43 06/30/20 06:43 INR, PTT INR 1.08 (0.83-1.09) 12/21/19 20:35 Problem List - Problems (1) Sepsis Assessment/Plan: blood cullture positive for Staph Epideridis sensitivity is pending Cefazolin 2 gm q8 hrs wound culture positive for MSSA Code(s): A41.9 - SEPSIS, UNSPECIFIED ORGANISM Qualifiers: Sepsis type: methicillin susceptible Staphylococcus aureus Sepsis acute organ dysfunction status: without acute organ dysfunction Qualified Code(s): A41.01 - Sepsis due to Methicillin susceptible Staphylococcus aureus (2) Abscess Assessment/Plan: abscess of the right index s/p I&D continue iv antibiotics awaiting for BC sensitivity Code(s): L02.91 - CUTANEOUS ABSCESS, UNSPECIFIED (3) Paroxysmal atrial fibrillation Assessment/Plan: HR controlled and sinus rhythm preserved since RF ABLATION 2018 Crestor 20 mg qhs lisinopril 5 mg daily ECHO normal Code(s): I48.0 - PAROXYSMAL ATRIAL FIBRILLATION (4) HTN (hypertension) Assessment/Plan: Lisinopril 5 mg daily Code(s): I10 - ESSENTIAL (PRIMARY) HYPERTENSION
--- NOTE | 2019-12-26 16:31 | PN ---
Progress Note (short form) - Note Progress Note: afebrile finger continues to improve Vital Signs Period Temp Pulse Resp BP Sys/Trejo Pulse Ox Last 24 Hr 97.9 F-99.0 F 20-92 20-20 113-126/76-86 98-98 less swelling, better ROM of the finger, less erythema CBC, BMP 12/25/19 06:43 12/25/19 06:43 Microbiology 12/23/19 14:15 Blood - Peripheral Venous Blood Culture - Preliminary NO GROWTH OBTAINED AFTER 72 HOURS, INCUBATION TO CONTINUE FOR 2 DAYS. 12/23/19 14:30 Blood - Peripheral Venous Blood Culture - Preliminary NO GROWTH OBTAINED AFTER 72 HOURS, INCUBATION TO CONTINUE FOR 2 DAYS. 12/21/19 20:35 Blood - Peripheral Venous Blood Culture - Preliminary NO GROWTH OBTAINED AFTER 96 HOURS, INCUBATION TO CONTINUE FOR 1 DAYS. 12/21/19 20:35 Blood - Peripheral Venous Blood Culture - Preliminary Staphylococcus Epidermidis 12/21/19 20:35 Finger - Right Index Finger Gram Stain - Final 12/21/19 20:35 Finger - Right Index Finger Wound Culture - Preliminary Staphylococcus Latex Coag Pos 12/21/19 21:55 Urine - Urine Clean Catch Urine Culture - Final NO GROWTH OBTAINED echo normal imp/reccd right second digit abscess/cellulitis- continue cefazolin, hopefully home in next 24-48 hours dw PMD
[2019-12-26] MEDS: DOCUSATE SODIUM 100 MG CAPSULE (FP) PO SCH (22:26)
[2019-12-26] MEDS ORDERED: ZOLPIDEM TARTRATE 5 MG TABLET PO ONE (23:08)
[2019-12-26] MEDS: ROSUVASTATIN CA 20 MG TABLET (FP) PO SCH (23:21)
[2019-12-27] MEDS: CEFAZOLIN 2 GM/D5W 2 GM/50 ML ML IVPB SCH ×4 (01:40→17:05)
[2019-12-27] MEDS: LISINOPRIL 5 MG TABLET (FP) PO SCH (09:50)
--- NOTE | 2019-12-27 13:53 | PN ---
Progress Note (short form) - Note Progress Note: afebrile finger continues to improve Vital Signs Period Temp Pulse Resp BP Sys/Trejo Pulse Ox Last 24 Hr 97.6 F-98.4 F 71-88 20-20 113-126/73-83 98 cor-rrr lungs- clear abd soft, nt ext- index finger with less swelling, more mobility exr 14 CBC, BMP 12/25/19 06:43 12/25/19 06:43 echo normal Microbiology 12/21/19 20:35 Finger - Right Index Finger Gram Stain - Final 12/21/19 20:35 Finger - Right Index Finger Wound Culture - Preliminary Staphylococcus Latex Coag Pos 12/21/19 20:35 Blood - Peripheral Venous Blood Culture - Final NO GROWTH AFTER 5 DAYS INCUBATION 12/23/19 14:15 Blood - Peripheral Venous Blood Culture - Preliminary NO GROWTH OBTAINED AFTER 72 HOURS, INCUBATION TO CONTINUE FOR 2 DAYS. 12/23/19 14:30 Blood - Peripheral Venous Blood Culture - Preliminary NO GROWTH OBTAINED AFTER 72 HOURS, INCUBATION TO CONTINUE FOR 2 DAYS. 12/21/19 20:35 Blood - Peripheral Venous Blood Culture - Preliminary Staphylococcus Epidermidis 12/21/19 21:55 Urine - Urine Clean Catch Urine Culture - Final NO GROWTH OBTAINED imp/reccd right second digit abscess/cellulitis- MSSA - to switch to po keflex 500 mg QID for another 3 to 4 weeks close outpt f/u he is averse to staying longer (afraid of covid exposure, unwilling to do picc line at this time) is willing to do close f/u with PMD as outpt and to f/u with hand surgeon as needed if further drainage is required dw PMD
[2019-12-27 14:51] VITALS: BP 130/75; PULSE 75; TEMP 98.2
--- NOTE | 2019-12-27 15:19 | DS ---
Physical Examination Vital Signs: Vital Signs Temperature 98.4 F 12/27/19 09:16 Pulse Rate 88 12/27/19 09:16 Respiratory Rate 20 12/27/19 09:16 Blood Pressure 113/73 12/27/19 09:16 O2 Sat by Pulse Oximetry (%) 98 12/26/19 21:00 Constitutional: Yes: No Distress, Calm Eyes: Yes: Conjunctiva Clear, EOM Intact HENT: Yes: Atraumatic, Normocephalic Neck: Yes: Supple, Trachea Midline Cardiovascular: Yes: Regular Rate and Rhythm, S1, S2 Respiratory: Yes: Regular, CTA Bilaterally Gastrointestinal: Yes: Normal Bowel Sounds, Soft, Abdomen, Obese. No: Hepatomegaly, Splenomegaly Extremities: No: Calf Tenderness Edema: No Peripheral Pulses WNL: Yes Wound/Incision: Yes: Clean/Dry, Well Approximated Psychiatric: Yes: Alert, Oriented Labs: CBC, BMP 12/25/19 06:43 12/25/19 06:43 Discharge Summary Problems reviewed: Yes Reason For Visit: CELLULITIS, FINGER INJURY Current Active Problems Abscess (Acute) HTN (hypertension) (Acute) Paroxysmal atrial fibrillation (Acute) Sepsis (Acute) Hospital Course: 64 yo male admitted with Sepsis and abscess of the right index, has positive blood cultures for MSSA. He received iv antibiotics with slow improvement. Due to the cardiac history he had ECHO which was normal. EH jennifer being discharged with oral atibiotic KEflex 500 mg qid - Instructions Referrals: Fanny Joya MD [Primary Care Provider] - - Home Medications Comprehensive Discharge Medication List: Ambulatory Orders Rosuvastatin Calcium [Crestor] 20 mg PO HS 03/30/18 Lisinopril 5 mg PO DAILY 12/22/19 Acetaminophen [Tylenol .Extra-Strength -] 500 mg PO Q6H PRN tablet 12/27/19 Cephalexin Monohydrate [Keflex -] 500 mg PO Q6HPO #120 capsule 12/27/19 Lisinopril [Prinivil] 5 mg PO DAILY tablet 12/27/19 Rosuvastatin [Crestor -] 20 mg PO HS tablet 12/27/19
[2019-12-27] MEDS ORDERED: CEPHALEXIN MONOHYDRATE 500 MG CAPSULE (UD) PO SCH (18:00)
== END 2019-12-27 17:18 | disposition home or self-care (01) | DRG 872 ==
LOC: JER 19:21 → JERBED 19:53 → J8W 12-22 00:13
PROVIDERS: ADMIT Internal Medicine; ATTEND Internal Medicine
PROC: 0J9J3ZZ Drainage of Right Hand Subcutaneous Tissue and Fascia, Percutaneous Approach (ICD-10-PCS; principal; 2019-12-22)
DX: A41.01 Sepsis due to Methicillin susceptible Staphylococcus aureus (principal); L02.511 Cutaneous abscess of right hand; I10 Essential (primary) hypertension; I48.0 Paroxysmal atrial fibrillation
CPT/HCPCS: 36415; 71045-TC-FY; 73140-TC-RT-FY; 80048; 80053; 81003; 83036; 83605; 85025; 85610; 85651; 85730; 86140; 87040; 87070; 87086; 87186; 87205; 93005; 93010; 93306-TC; 99285-25; G0480; J0131; U0003